=== PATIENT | male | born 1970 | race Caucasian/White ===

== ENCOUNTER 2025-11-20 21:34 | Emergency (ER) | payer MEDICAID ==
[~2025-11-20] VITALS: Ht 172.7 cm; Wt 95.3 kg
[2025-11-20 22:51] VITALS: BP 140/65; TEMP 98; O2SAT 97
== END 2025-11-20 22:51 | disposition home or self-care (01) ==
LOC: ER 21:38
DX: F10.129 Alcohol abuse with intoxication, unspecified (principal); F17.200 Nicotine dependence, unspecified, uncomplicated; F10.10 Alcohol abuse, uncomplicated
CPT/HCPCS: 82962-TC; 98960